=== PATIENT | female | born 2000 | race African-American/Black ===

== ENCOUNTER 2022-08-06 00:31 | Emergency (ER) | payer MEDICAID, OTHER ==
[2022-08-06 01:43] VITALS: BP 141/93
[2022-08-06] MEDS ORDERED: MUPI22OI2 TP (01:44)
[2022-08-06] MEDS ORDERED: CEPH500T PO (01:44)
--- NOTE | 2022-08-06 01:44 | ED Integumentary General ---
General Chief Complaint: Breast Complaints Stated Complaint: SORE ON LEFT BREAST Nursing Triage Note: PT AMBULATORY INTO ER FROM HOME VIA PRIVATE VEHICLE WITH COMPLAINT OF SORE ON LEFT BREAST. PT STATES THAT ITS BEEN PRESENT X2 DAYS. PATIENT DESCRIBED IT A RAISED KNOT ABOUT SIZE OF A DIME. WILL ALLOW PROVIDER TO DO ASSESSMENT. THIS RN DIDN'T ASSESS. 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: [employer] Physical Exam Vital Signs Vital Signs - First Documented 08/06/22 00:51 Temp 36.6 Pulse 88 Resp 16 B/P (MAP) 147/95 (112) Pulse Ox 98 O2 Delivery Room Air Capillary Refill : Less Than 3 Seconds Progress/Results/Core Measures Results/Orders My Orders Orders - PAWEL DENNISON DO Cephalexin Capsule (Keflex Capsule) (08/06/22 01:45) Vital Signs/I&O 08/06/22 00:51 Temp 36.6 Pulse 88 Resp 16 B/P (MAP) 147/95 (112) Pulse Ox 98 O2 Delivery Room Air Blood Pressure Mean: 112 Departure Impression Primary Impression: Folliculitis Disposition: 01 HOME, SELF-CARE Condition: Stable Departure-Patient Inst. Decision time for Depature: 01:43 Referrals: NO,LOCAL PHYSICIAN (PCP/Family) Primary Care Physician Patient Instructions: Folliculitis Add. Discharge Instructions: MOIST HEAT TO AREA AT 20 MINUTE INTERVALS TYLENOL AND MOTRIN NEEDED FOR PAIN FOLLOW UP WITH OF [facility] IN 3-4 DAYS IF NO BETTER, OR SOONER IF WORSE All discharge instructions reviewed with patient and/or family. Voiced understanding. Scripts Mupirocin (Mupirocin) 2 % Oint...g. 22 GM TP BID, #1 TUBE Prov: PAWEL DENNISON DO 08/06/22 Cephalexin (Cephalexin) 500 Mg Tablet 500 MG PO QID, #20 TAB 0 Refills Prov: PAWEL DENNISON DO 08/06/22 PAWEL DENNISON DO Aug 06, 2022 01:44
[2022-08-06] MEDS ORDERED: CEPHALEXIN 250 MG (KEFLEX) CAP PO ONE (01:45)
== END 2022-08-06 01:48 | disposition home or self-care (01) ==
LOC: ER 00:34
DX: L73.9 Follicular disorder, unspecified (principal)
CPT/HCPCS: 99281

== ENCOUNTER 2022-09-08 13:46 | Emergency (ER) | payer MEDICAID ==
[~2022-09-08] VITALS: Ht 157 cm; Wt 100.0 kg
[~2022-09-08 13:46] MED LIST: CEPH500T PO; MUPI22OI2 TP
[2022-09-08 14:24] VITALS: BP 124/68
[2022-09-09] MEDS ORDERED: IBUP-1773 PO (14:01)
[2022-09-09] MEDS ORDERED: ONDA4TAB11 SL (14:01)
[2022-09-09] MEDS ORDERED: NITR-65 PO (14:01)
== END 2022-09-08 15:32 | disposition left against medical advice (07) ==
LOC: EDUNIT# 13:46 → ER 13:48
DX: R05.9 Cough, unspecified (principal); R09.81 Nasal congestion
CPT/HCPCS: 99285

== ENCOUNTER 2022-09-09 12:12 | Emergency (ER) | payer MEDICAID ==
[~2022-09-09] VITALS: Ht 157.5 cm; Wt 90.7 kg
--- NOTE | 2022-09-09 13:20 | ED General ---
General Chief Complaint: Abdominal/GI Problems Stated Complaint: ABD CRAMPS/BACK PAIN POS 4 WKS PREG Nursing Triage Note: PT AMB TO TRIAGE, STATES "I WENT TO THE HOSPITAL ABOUT A MONTH AGO AND THEY TOLD ME I WAS BUT I DIDN'T BELIEVE THEM BECAUSE I TOOK A PLAN B BUT NOW I GO PEE ALL THE TIME AND MY ABDOMEN HURTS SO MY PARENTS TOLD ME TO COME HERE." PT ALSO C/O NAUSEA, FATIGUE, RAMOS. PT A&OX4. Source of Information: Patient Exam Limitations: No Limitations History of Present Illness Date Seen by Provider: Sep 09, 2022 Time Seen by Provider: 13:15 Initial Comments Patient is a 22-year-old female who presents to the emergency department with several days of intermittent headache as well as nausea without vomiting. Patient states she was seen a month ago at another hospital where she was told she was . Patient states "I do not believe in". She states she took Plan B after a sexual encounter shortly prior to presenting to that hospital. She states she has been having some mild diffuse abdominal cramping intermittently for the last few days as well. Denies any diarrhea or constipation. She has not been taking anything for the symptoms. She is unsure of the exact date of her last menstrual period. Allergies and Home Medications Allergies Coded Allergies: No Known Drug Allergies (Unverified , 08/06/22) Patient Home Medication List Home Medication List Reviewed: Yes Cephalexin (Cephalexin) 500 Mg Tablet, 500 MG PO QID Prescribed by: PAWEL DENNISON on 08/06/22 014 Ibuprofen (Ibuprofen) 600 Mg Tablet, 600 MG PO Q6H PRN for PAIN-MILD Prescribed by: Bhupinder Salgado on 09/09/22 140 Mupirocin (Mupirocin) 2 % Oint...g., 22 GM TP BID Prescribed by: PAWEL DENNISON on 08/06/22 014 Nitrofurantoin Monohyd/M-Cryst (Macrobid 100 mg Capsule) 100 Mg Capsule, 1 TAB PO BID Prescribed by: Bhupinder Salgado on 09/09/221400 Ondansetron (Ondansetron Odt) 4 Mg Tab.rapdis, 4 MG SL Q4H PRN for NAUSEA/VOMITING Prescribed by: Bhupinder Salgado on 09/09/22 140 Review of Systems Review of Systems Constitutional: no symptoms reported EENTM: no symptoms reported Respiratory: no symptoms reported Cardiovascular: no symptoms reported Gastrointestinal: see HPI, abdominal pain, nausea Genitourinary: no symptoms reported Musculoskeletal: no symptoms reported Skin: no symptoms reported Psychiatric/Neurological: No Symptoms Reported Hematologic/Lymphatic: No Symptoms Reported Immunological/Allergic: no symptoms reported Past Lttoqcd-Anmwxk-Kexzqa Hx Patient Social History Tobacco Use?: No Use of E-Cig and/or Vaping dev: No Substance use?: No Alcohol Use?: No Immunizations Up To Date Influenza Vaccine Up-to-Date: Yes; Up-to-Date First/Initial COVID19 Vaccinat: 01/13 Second COVID19 Vaccination Teodoro: 01/13 Third COVID19 Vaccination Date: NONE COVID19 Vaccine Seo Strategist: UNK X2 SHOTS Past Medical History Surgery/Hospitalization HX: ENT SURGERY, T&A, TUBES IN EARS, ASTHMA Surgeries: No Respiratory: Yes Asthma Cardiac: No Neurological: No Last Menstrual Period: Jul 09, 2022 Genitourinary: No Gastrointestinal: No Musculoskeletal: No Endocrine: No HEENT: No Cancer: No Psychosocial: No Integumentary: No Blood Disorders: No Physical Exam Vital Signs Vital Signs - First Documented 09/09/22 12:33 Temp 36.5 Pulse 106 Resp 20 B/P (MAP) 130/100 (110) Pulse Ox 98 O2 Delivery Room Air Capillary Refill : Less Than 3 Seconds Height, Weight, BMI Height: '" Weight: lbs. oz. kg; 36.00 BMI Method: General Appearance: No Apparent Distress, WD/WN HEENT: PERRL/EOMI, TMs Normal, Normal ENT Inspection, Pharynx Normal Neck: Full Range of Motion, Normal Inspection, Non Tender, Supple Respiratory: Chest Non Tender, Lungs Clear, Normal Breath Sounds, No Accessory Muscle Use, No Respiratory Distress Cardiovascular: Regular Rate, Rhythm Gastrointestinal: Non Tender, Soft Neurologic/Psychiatric: Alert, Oriented x3, No Motor/Sensory Deficits, Normal Mood/Affect, head shipper II-XII Norm as Tested Skin: Normal Color, Warm/Dry Progress/Results/Core Measures Suspected Sepsis SIRS Temperature: Pulse: 106 Respiratory Rate: 20 Blood Pressure 130 /100 Mean: 110 Results/Orders Lab Results Laboratory Tests Test 09/09/22 12:55 Range/Units Urine Color YELLOW Urine Clarity CLEAR Urine pH 6.0 5-9 Urine Specific [place] >=1.030 1.016-1.022 Urine Protein NEGATIVE NEGATIVE Urine Glucose (UA) NEGATIVE NEGATIVE Urine Ketones NEGATIVE NEGATIVE Urine Nitrite POSITIVE H NEGATIVE Urine Bilirubin NEGATIVE NEGATIVE Urine Urobilinogen 0.2 < = 1.0 MG/DL Urine Leukocyte Esterase 2+ H NEGATIVE Urine RBC (Auto) NEGATIVE NEGATIVE Urine RBC NONE /HPF Urine WBC 5-10 H /HPF Urine Squamous Epithelial Cells 5-10 /HPF Urine Crystals NONE /LPF Urine Bacteria LARGE H /HPF Urine Casts NONE /LPF Urine Mucus NEGATIVE /LPF Urine Culture Indicated YES My Orders Orders - BHUPINDER SALGADO APRN Ua Culture If Indicated (09/09/22 13:15) Urine Bedside (09/09/22 13:15) Urine Culture (09/09/22 12:55) Vital Signs/I&O 09/09/22 12:33 Temp 36.5 Pulse 106 Resp 20 B/P (MAP) 130/100 (110) Pulse Ox 98 O2 Delivery Room Air Capillary Refill : Less Than 3 Seconds Blood Pressure Mean: 110 Progress Note : Progress Note Patient is nontoxic and well-hydrated on exam. Abdominal exam is reassuring without focal provocation of pain or rigidity/distention. Patient was ambulatory to the room without issue. Vital signs are reassuring without fever. Urine was negative. Urinalysis was nitrite positive and bacteriuria was noted on microscopic. We will treat with a course of Macrobid. Patient will also be given medicine for headache and the nausea. Follow-up with PCP. Return precautions for urgent symptomology discussed. Patient verbalized unders tanding. Departure Impression Primary Impression: UTI (urinary tract infection) Qualified Codes: N30.00 - Acute cystitis without hematuria Additional Impression: Headache Qualified Codes: R51.9 - Headache, unspecified Disposition: HOME, SELF-CARE Condition: Stable Departure-Patient Inst. Referrals: NO,LOCAL PHYSICIAN (PCP/Family) Primary Care Physician Patient Instructions: Headache, Adult ED, Urinary Tract Infection, Adult ED Scripts Ibuprofen (Ibuprofen) 600 Mg Tablet 600 MG PO Q6H PRN for PAIN-MILD for 5 Days, #20 TAB 0 Refills Prov: BHUPINDER SALGADO APRN 09/09/22 Ondansetron (Ondansetron Odt) 4 Mg Tab.rapdis 4 MG SL Q4H PRN for NAUSEA/VOMITING for 5 Days, #25 TAB 0 Refills Prov: BHUPINDER SALGADO APRN 09/09/22 Nitrofurantoin Monohyd/M-Cryst (Macrobid 100 mg Capsule) 100 Mg Capsule 1 TAB PO BID for 5 Days, #10 CAP 0 Refills Prov: BHUPINDER SALGADO APRN 09/09/22 BHUPINDER SALGADO APRN Sep 09, 2022 13:20
[2022-09-09 13:21] LABS: BILIRUBIN,URINE NEGATIVE (NEGATIVE); CLARITY,URINE CLEAR; COLOR,URINE YELLOW; GLUCOSE, URINE (UA) NEGATIVE (NEGATIVE); KETONES,URINE NEGATIVE (NEGATIVE); LEUKOCYTE ESTERASE ,URINE 2+ (NEGATIVE); NITRITE,URINE POSITIVE (NEGATIVE); PROTEIN,URINE NEGATIVE (NEGATIVE)
[2022-09-09 13:28] LABS: BACTERIA,URINE LARGE /HPF
[2022-09-09] MEDS ORDERED: ONDA4TAB11 SL (14:01)
[2022-09-09] MEDS ORDERED: IBUP-1773 PO (14:01)
[2022-09-09] MEDS ORDERED: NITR-65 PO (14:01)
[2022-09-09 14:13] VITALS: BP 147/84
== END 2022-09-09 14:13 | disposition home or self-care (01) ==
LOC: EDUNIT# 12:12 → ER 12:16
DX: N39.0 Urinary tract infection, site not specified (principal); R51.9 Headache, unspecified
CPT/HCPCS: 81000; 84703; 87077; 87088; 87186; 99282

== ENCOUNTER 2022-09-11 00:16 | Emergency (ER) | payer MEDICAID ==
[~2022-09-11] VITALS: Ht 157.5 cm; Wt 90.7 kg
[~2022-09-11 00:16] MED LIST changes: +IBUP-1773 PO; +NITR-65 PO; +ONDA4TAB11 SL
--- NOTE | 2022-09-11 01:18 | ED Cough/URI ---
General Stated Complaint: CONGESTION Source: patient (LIMITED HISTORIAN) History of Present Illness Date Seen by Provider: Sep 11, 2022 Time Seen by Provider: 00:25 Initial Comments PT ARRIVES VIA POV FROM HOME SISTER IS BEING SEEN ALSO TONIGHT PT STATES SHE IS "CONGESTED" NO OTHER COMPLAINTS HAS NOT TAKEN ANYTHING FOR SYMPTOMS SHE STATES SYMPTOMS BEGAN TONIGHT ON REVIEW OF CHART, PT HAS BEEN HERE 4 TIMES, SINCE HER FIRST VISIT HERE 08/06/22 WAS HERE 09/08/22 FOR "CONGESTION" THEN LEFT WITHOUT BEING SEEN FROM THE WAITING ROOM HERE 09/09/22 FOR UTI COMPLAINTS, GIVEN RX FOR MACROBID AND ZOFRAN, AND IBUPROFEN. DENIES ANY MEDICAL PROBLEMS PCP: NONE--RECENTLY MOVED HERE--GIVES CONFLICTING INFORMATION OF WHEN SHE MOVED HERE AND FROM WHERE. Allergies and Home Medications Allergies Coded Allergies: No Known Drug Allergies (Unverified , 08/06/22) Patient Home Medication List Home Medication List Reviewed: Yes Cephalexin (Cephalexin) 500 Mg Tablet, 500 MG PO QID Prescribed by: PAWEL DENNISON on 08/06/22 0144 Ibuprofen (Ibuprofen) 600 Mg Tablet, 600 MG PO Q6H PRN for PAIN-MILD Prescribed by: Lavelle Salgado on 09/09/22 1401 Mupirocin (Mupirocin) 2 % Oint...g., 22 GM TP BID Prescribed by: PAWEL DENNISON on 08/06/22 0144 Nitrofurantoin Monohyd/M-Cryst (Macrobid 100 mg Capsule) 100 Mg Capsule, 1 TAB PO BID Prescribed by: Lavelle Salgado on 09/09/22 1401 Ondansetron (Ondansetron Odt) 4 Mg Tab.rapdis, 4 MG SL Q4H PRN for NAUSEA/VOMITING Prescribed by: Lavelle Salgado on 09/09/22 1401 Review of Systems Review of Systems Constitutional: no symptoms reported EENTM: nose congestion Respiratory: no symptoms reported Cardiovascular: no symptoms reported Gastrointestinal: no symptoms reported Genitourinary: no symptoms reported Musculoskeletal: no symptoms reported Skin: no symptoms reported Psychiatric/Neurological: No Symptoms Reported Hematologic/Lymphatic: No Symptoms Reported Immunological/Allergic: no symptoms reported Past Rndudyd-Rockkj-Flygwc Hx Patient Social History Tobacco Use?: No Substance use?: No Alcohol Use?: No Immunizations Up To Date First/Initial COVID19 Vaccinat: 01/13 Second COVID19 Vaccination Teodoro: 01/13 Third COVID19 Vaccination Date: NONE Past Medical History Surgery/Hospitalization HX: ENT SURGERY, T&A, TUBES IN EARS, ASTHMA Surgeries: Yes Adenoidectomy, Ear Surgery, Tonsillectomy Respiratory: Yes Asthma Cardiac: No Neurological: No Genitourinary: No Gastrointestinal: No Musculoskeletal: No Endocrine: No HEENT: No Cancer: No Psychosocial: No Integumentary: No Blood Disorders: No Physical Exam Vital Signs - First Documented 09/11/22 00:30 Temp 37.2 Pulse 76 Resp 16 B/P (MAP) 146/68 (94) Pulse Ox 99 O2 Delivery Room Air Capillary Refill : Height: '" Weight: lbs. oz. kg; 36.00 BMI Method: General Appearance: WD/WN, no apparent distress, obese, other (GIGGLING. DOES NOT APPEAR TO BE IN ANY DISCOMFORT OR DISTREESS) HEENT: PERRL/EOMI, TMs normal, pharynx normal, other (VERY MILD NASAL CONGESTION. NO SINUS TENDERNESS. NO SIGNIFICANT DRAINAGE. ) Neck: non-tender, full range of motion, supple, normal inspection Respiratory: normal breath sounds, no respiratory distress, no accessory muscle use Cardiovascular: regular rate, rhythm, no murmur Gastrointestinal: soft Extremities: normal inspection, normal capillary refill Neurologic/Psychiatric: no motor/sensory deficits, alert, normal mood/affect, oriented x 3 Skin: normal color (PT IS BLACK), warm/dry Progress/Results/Core Measures Suspected Sepsis SIRS Temperature: Pulse: Respiratory Rate: Blood Pressure / Mean: Results/Orders Lab Results Laboratory Tests Test 09/11/22 00:37 Range/Units Influenza Type A (RT-PCR) Not Detected Not Detecte Influenza Type B (RT-PCR) Not Detected Not Detecte SARS-CoV-2 RNA (RT-PCR) Not Detected Not Detecte My Orders Orders - PAWEL DENNISON DO Covid 19 Inhouse Test (09/11/22 00:25) Influenza A And B By Pcr (09/11/22 00:25) Isolation Central Supply Req (09/11/22 00:25) Vital Signs/I&O 09/11/22 09/11/22 00:30 01:30 Temp 37.2 37.0 Pulse 76 74 Resp 16 14 B/P (MAP) 146/68 (94) 145/73 Pulse Ox 99 98 O2 Delivery Room Air Room Air Capillary Refill : Progress Note : Progress Note PPE WORN COVID AND FLU TESTING DONE REVIEWED TEST RESULTS, ANTICIPATED COURSE, SYMPTOMATIC TREATMENT, NEED FOR FOLL OW UP AND NEED TO ESTABLISH CARE WITH LOCAL DR--LIST PROVIDED, AND RETURN PRECAUTIONS. Departure Impression Primary Impression: Upper respiratory infection Disposition: HOME, SELF-CARE Condition: Stable Departure-Patient Inst. Decision time for Depature: 01:17 Referrals: NO,LOCAL PHYSICIAN (PCP/Family) Primary Care Physician Patient Instructions: Cough, Runny Nose, and the Common Cold Add. Discharge Instructions: TYLENOL AND MOTRIN NEEDED FOR PAIN OR FEVER OVER THE COUNTER MEDICATIONS FOR NASAL CONGESTION SUCH FLONASE NASAL SPRAY, CLARITIN, MUCINEX FOLLOW UP WITH DR. OF CHOICE IN 5-7 DAYS IF NO BETTER Work/School Note: Local Medical Staff Listing PAWEL DENNISON DO Sep 11, 2022 01:18
[2022-09-11 01:30] VITALS: BP 145/73
== END 2022-09-11 01:30 | disposition home or self-care (01) ==
LOC: EDUNIT# 00:16 → ER 00:20
DX: J06.9 Acute upper respiratory infection, unspecified (principal); Z20.822 Contact with and (suspected) exposure to COVID-19
CPT/HCPCS: 87636; 99283

== ENCOUNTER 2023-04-05 00:18 | Emergency (ER) | payer MEDICAID ==
[2023-04-05 01:41] LABS: BILIRUBIN,URINE NEGATIVE (NEGATIVE); CLARITY,URINE CLEAR; COLOR,URINE YELLOW; GLUCOSE, URINE (UA) NEGATIVE (NEGATIVE); KETONES,URINE NEGATIVE (NEGATIVE); LEUKOCYTE ESTERASE ,URINE 1+ (NEGATIVE); NITRITE,URINE NEGATIVE (NEGATIVE); PROTEIN,URINE NEGATIVE (NEGATIVE)
[2023-04-05 02:00] LABS: BACTERIA,URINE MODERATE /HPF; RBC,URINE 0-2 /HPF
[2023-04-05] MEDS ORDERED: AZITHROMYCIN 250 MG TAB (ZITHROMAX) PO STA (02:47)
[2023-04-05] MEDS ORDERED: cefTRIAXone IV/IM 1,000 MG in NS (IVPB) 50 ML IV STA (02:47)
--- NOTE | 2023-04-05 02:58 | ED GU-Female ---
General Chief Complaint: Abdominal/GI Problems Stated Complaint: ABD PAIN/VAG DISCHARGE/URINE SMELLS Nursing Triage Note: PT AMB TO RM 7 WITH CC OF LOWER ABD PAIN, ODOROUS URINE ABD SKIPPED PERIOD SINCE 04/02. PT DENIES N/V/D Source: patient Exam Limitations: no limitations History of Present Illness Date Seen by Provider: Apr 05, 2023 Time Seen by Provider: 00:30 Initial Comments This 22-year-old young lady presents to the emergency room with complaint of about 3 days of vaginal and urinary discharge with odor. She has pelvic pain with urination. She is sexually active but is not having pain with intercourse. She has had no fever. Allergies and Home Medications Allergies Coded Allergies: No Known Drug Allergies (Unverified , 08/06/22) Patient Home Medication List Home Medication List Reviewed: Yes Cephalexin (Cephalexin) 500 Mg Tablet, 500 MG PO QID Prescribed by: PAWEL DENNISON on 08/06/22 0144 Ibuprofen (Ibuprofen) 600 Mg Tablet, 600 MG PO Q6H PRN for PAIN-MILD Prescribed by: Lavelle Salgado on 09/09/22 140 Metronidazole (Metronidazole) 500 Mg Tablet, 500 MG PO BID PRN Prescribed by: RODRÍGUEZ RUSSELL on 04/05/23 0303 Mupirocin (Mupirocin) 2 % Oint...g., 22 GM TP BID Prescribed by: PAWEL DENNISON on 08/06/22 0144 Nitrofurantoin Monohyd/M-Cryst (Macrobid 100 mg Capsule) 100 Mg Capsule, 1 TAB PO BID Prescribed by: Lavelle Salgado on 09/09/22 140 Ondansetron (Ondansetron Odt) 4 Mg Tab.rapdis, 4 MG SL Q4H PRN for NAUSEA/V OMITING Prescribed by: Lavelle Salgado on 09/09/22 1401 Review of Systems Review of Systems Constitutional: no symptoms reported EENTM: no symptoms reported Respiratory: no symptoms reported Cardiovascular: no symptoms reported Gastrointestinal: no symptoms reported Genitourinary: see HPI : No LMP: Feb 28, 2023 Musculoskeletal: no symptoms reported Skin: no symptoms reported Psychiatric/Neurological: No Symptoms Reported Endocrine: No Symptoms Reported Past Oxgakkm-Tcfbny-Dfdxog Hx Patient Social History Tobacco Use?: No Substance use?: No Alcohol Use?: No Pt feels they are or have been: No Immunizations Up To Date First/Initial COVID19 Vaccinat: 2020 Second COVID19 Vaccination Teodoro: 2020 Third COVID19 Vaccination Date: 2020 Past Medical History Surgery/Hospitalization HX: ENT SURGERY, T&A, TUBES IN EARS, ASTHMA Surgeries: Yes Adenoidectomy, Ear Surgery (BMT), Tonsillectomy Respiratory: Yes Asthma Cardiac: No Neurological: No : No Last Menstrual Period: Feb 28, 2023 Genitourinary: No Gastrointestinal: No Musculoskeletal: No Endocrine: No HEENT: No Cancer: No Psychosocial: No Integumentary: No Blood Disorders: No Physical Exam Vital Signs Vital Signs - First Documented 04/05/23 00:25 Pulse 105 Resp 18 B/P (MAP) 140/84 (102) Pulse Ox 98 O2 Delivery Room Air Capillary Refill : Less Than 3 Seconds Height, Weight, BMI Height: '" Weight: lbs. oz. kg; 36.00 BMI Method: General Appearance: WD/WN, no apparent distress HEENT: normal ENT inspection Neck: normal inspection Cardiovascular: regular rate, rhythm, no edema, no murmur Respiratory: lungs clear, normal breath sounds, no respiratory distress Gastrointestinal: normal bowel sounds, non tender, soft; No distended Genital/Rectal: normal genital exam, other (External exam was normal. There was scant mucousy or purulent discharge near the cervix. There were no significant inflammatory changes. There was minimal cervical motion tenderness. No bleeding within the vaginal canal. Cervix appeared otherwise normal.) Extremities: normal inspection Neurologic/Psychiatric: no motor/sensory deficits, alert, normal mood/affect, oriented x 3 Skin: normal color, warm/dry Progress/Results/Core Measures Suspected Sepsis SIRS Temperature: Pulse: 105 Respiratory Rate: 18 Blood Pressure 140 /84 Mean: 102 Results/Orders Lab Results Laboratory Tests Test 04/05/23 01:25 04/05/23 02:19 Range/Units Urine Color YELLOW Urine Clarity CLEAR Urine pH 6.0 5-9 Urine Specific [place] >=1.030 1.016-1.022 Urine Protein NEGATIVE NEGATIVE Urine Glucose (UA) NEGATIVE NEGATIVE Urine Ketones NEGATIVE NEGATIVE Urine Nitrite NEGATIVE NEGATIVE Urine Bilirubin NEGATIVE NEGATIVE Urine Urobilinogen 0.2 < = 1.0 MG/DL Urine Leukocyte Esterase 1+ H NEGATIVE Urine RBC (Auto) NEGATIVE NEGATIVE Urine RBC 0-2 /HPF Urine WBC 2-5 /HPF Urine Squamous Epithelial Cells 5-10 /HPF Urine Crystals NONE /LPF Urine Bacteria MODERATE H /HPF Urine Casts NONE /LPF Urine Mucus SMALL H /LPF Urine Culture Indicated YES Urine Test NEGATIVE NEGATIVE My Orders Orders - RODRÍGUEZ MOYA MD Ua Culture If Indicated (04/05/23 00:30) Wet Prep (04/05/23 00:47) Neisseria Gonorrhea Swab (04/05/23 00:47) Genital Culture (04/05/23 00:47) Chlamydia Trachomatis Swab (04/05/23 00:47) Urine Culture (04/05/23 01:25) Ceftriaxone Iv/Im (Rocephin Iv/Im) (04/05/23 02:47) Azithromycin Tablet (Zithromax Tablet) (04/05/23 02:47) Hcg,Qualitative Urine (04/05/23 03:04) Vital Signs/I&O 04/05/23 04/05/23 00:25 03:14 Pulse 105 89 Resp 18 16 B/P (MAP) 140/84 (102) 123/73 Pulse Ox 98 100 O2 Delivery Room Air Room Air Capillary Refill : Less Than 3 Seconds Blood Pressure Mean: 102 Progress Note : Progress Note Urinalysis was reviewed. By my interpretation there was subtle suggestion of UTI. There was moderate bacteria but no significant WBC count. Due to patient's symptoms of odorous vaginal discharge with some cervical motion tenderness, patient was treated with Rocephin and azithromycin. Clue cells were reported on the microscopic exam. Flagyl was therefore prescribed. Pelvic exam was performed with consent and with female suzan Nunez as a counter tender. Departure Impression Primary Impression: Bacterial vaginosis Additional Impression: Pelvic pain Disposition: HOME, SELF-CARE Condition: Stable Departure-Patient Inst. Decision time for Depature: 02:54 Referrals: NO,LOCAL PHYSICIAN (PCP/Family) Primary Care Physician Patient Instructions: Bacterial Vaginosis ED Add. Discharge Instructions: Complete your antibiotics as prescribed. Abstain from sexual intercourse or anything vaginally until the results of your cultures are known. Culture results should be available in 3 or 4 days. Please follow-up with a primary care provider to discuss results. If you are unable to establish with a primary care clinic, you may contact the ER after 3 or 4 days to inquire about results. Return to care if you have worsening symptoms despite following these instructions. All discharge instructions reviewed with patient and/or family. Voiced understanding. Scripts Metronidazole (Metronidazole) 500 Mg Tablet 500 MG PO BID PRN, #14 TAB Prov: RODRÍGUEZ MOYA MD 04/05/23 RODRÍGUEZ MOYA MD Apr 05, 2023 02:58
[2023-04-05] MEDS ORDERED: METR-145 PO (03:03)
[2023-04-05 03:14] VITALS: BP 123/73
== END 2023-04-05 03:22 | disposition home or self-care (01) ==
LOC: EDUNIT# 00:18 → ER 00:21
DX: N76.0 Acute vaginitis (principal); B96.89 Other specified bacterial agents as the cause of diseases classified elsewhere; R10.2 Pelvic and perineal pain
CPT/HCPCS: 36415; 81000; 84703; 87070; 87077; 87088; 87186; 87205; 87210; 87491; 87591

== ENCOUNTER 2023-06-04 00:50 | Emergency (ER) | payer MEDICAID ==
[~2023-06-04] VITALS: Ht 158 cm; Wt 95.0 kg
[~2023-06-04 00:50] MED LIST changes: +METR-145 PO
[2023-06-04 01:15] VITALS: BP 139/86
[2023-06-04 02:06] LABS: CLARITY,URINE CLOUDY; COLOR,URINE YELLOW
[2023-06-04 02:07] LABS: BACTERIA,URINE MODERATE /HPF; BILIRUBIN,URINE NEGATIVE (NEGATIVE); GLUCOSE, URINE (UA) NEGATIVE (NEGATIVE); KETONES,URINE TRACE (NEGATIVE); LEUKOCYTE ESTERASE ,URINE 1+ (NEGATIVE); NITRITE,URINE POSITIVE (NEGATIVE); PROTEIN,URINE NEGATIVE (NEGATIVE)
[2023-06-04 02:23] LABS: AMPHETAMINE SCREEN, URINE NEGATIVE (NEGATIVE); BARBITURATE SCREEN URINE NEGATIVE (NEGATIVE); BENZODIAZEPINES SCREEN URINE NEGATIVE (NEGATIVE); CANNABINOID SCREEN, URINE NEGATIVE (NEGATIVE); COCAINE SCREEN URINE NEGATIVE (NEGATIVE); METHADONE STAT NEGATIVE (NEGATIVE); OPIATE SCREEN URINE NEGATIVE (NEGATIVE); OXYCODONE STAT NEGATIVE (NEGATIVE); PROPOXYPHENE STAT NEGATIVE (NEGATIVE); TRICYCLIC ANTIDEPRESSANTS SCRE NEGATIVE (NEGATIVE)
[2023-06-04] MEDS ORDERED: VALA10004 PO (02:56)
[2023-06-04] MEDS ORDERED: METR-145 PO (02:56)
[2023-06-04] MEDS ORDERED: DOXY100T2 PO (02:56)
[2023-06-04] MEDS ORDERED: ACYC30OI TP (02:56)
--- NOTE | 2023-06-04 02:56 | ED GU-Female ---
General Chief Complaint: - Reproductive Stated Complaint: VAGINA TENDER,ABD PX,RAMOS,VOMITING X 3WKS Nursing Triage Note: pt states she has had vaginal burning, discomfort and discharge for 3 weeks. has not had a period in almost 2 months, does not remember when her last period was Allergies and Home Medications Allergies Coded Allergies: No Known Drug Allergies (Unverified , 08/06/22) Patient Home Medication List Cephalexin (Cephalexin) 500 Mg Tablet, 500 MG PO QID Prescribed by: PAWEL DENNISON on 08/06/22 0144 Ibuprofen (Ibuprofen) 600 Mg Tablet, 600 MG PO Q6H PRN for PAIN-MILD Prescribed by: Lavelle Salgado on 09/09/22 1401 Metronidazole (Metronidazole) 500 Mg Tablet, 500 MG PO BID PRN Prescribed by: RODRÍGUEZ RUSSELL on 04/05/23 0303 Mupirocin (Mupirocin) 2 % Oint...g., 22 GM TP BID Prescribed by: PAWEL DENNISON on 08/06/22 0144 Nitrofurantoin Monohyd/M-Cryst (Macrobid 100 mg Capsule) 100 Mg Capsule, 1 TAB PO BID Prescribed by: Lavelle Salgado on 09/09/22 1401 Ondansetron (Ondansetron Odt) 4 Mg Tab.rapdis, 4 MG SL Q4H PRN for NAUSEA/VOMITING Prescribed by: Lavelle Salgado on 09/09/22 1401 Past Xdcpvef-Wxtwcm-Qvyxpt Hx Patient Social History Tobacco Use?: No Substance use?: No Alcohol Use?: No Immunizations Up To Date First/Initial COVID19 Vaccinat: 2020 Second COVID19 Vaccination Teodoro: 2020 Third COVID19 Vaccination Date: 2020 Past Medical History Surgery/Hospitalization HX: ENT SURGERY, T&A, TUBES IN EARS, ASTHMA Surgeries: Yes Adenoidectomy, Ear Surgery, Tonsillectomy Respiratory: Yes Asthma Cardiac: No Neurological: No Genitourinary: No Gastrointestinal: No Musculoskeletal: No Endocrine: No HEENT: No Cancer: No Psychosocial: No Integumentary: No Blood Disorders: No Physical Exam Vital Signs Vital Signs - First Documented 06/04/23 01:15 Temp 36.4 Pulse 92 Resp 18 B/P (MAP) 139/86 (103) Pulse Ox 98 Capillary Refill : Height, Weight, BMI Height: '" Weight: lbs. oz. kg; 38.00 BMI Method: Progress/Results/Core Measures Suspected Sepsis SIRS Temperature: Pulse: 92 Respiratory Rate: 18 Blood Pressure 139 /86 Mean: 103 Results/Orders Lab Results Laboratory Tests Test 06/04/23 01:21 06/04/23 01:24 06/04/23 01:35 Range/Units Urine Opiates Screen NEGATIVE NEGATIVE Urine Oxycodone Screen NEGATIVE NEGATIVE Urine Methadone Screen NEGATIVE NEGATIVE Urine Propoxyphene Screen NEGATIVE NEGATIVE Urine Barbiturates Screen NEGATIVE NEGATIVE Ur Tricyclic Antidepressants Screen NEGATIVE NEGATIVE Urine Phencyclidine Screen NEGATIVE NEGATIVE Urine Amphetamines Screen NEGATIVE NEGATIVE Urine Methamphetamines Screen NEGATIVE NEGATIVE Urine Benzodiazepines Screen NEGATIVE NEGATIVE Urine Cocaine Screen NEGATIVE NEGATIVE Urine Cannabinoids Screen NEGATIVE NEGATIVE Urine Color YELLOW Urine Clarity CLOUDY Urine pH 5.0 5-9 Urine Specific [place] >=1.030 1.016-1.022 Urine Protein NEGATIVE NEGATIVE Urine Glucose (UA) NEGATIVE NEGATIVE Urine Ketones TRACE H NEGATIVE Urine Nitrite POSITIVE H NEGATIVE Urine Bilirubin NEGATIVE NEGATIVE Urine Urobilinogen 0.2 < = 1.0 MG/DL Urine Leukocyte Esterase 1+ H NEGATIVE Urine RBC (Auto) 1+ H NEGATIVE Urine RBC 2-5 H /HPF Urine WBC 10-25 H /HPF Urine Squamous Epithelial Cells 10-25 H /HPF Urine Crystals NONE /LPF Urine Bacteria MODERATE H /HPF Urine Casts NONE /LPF Urine Mucus MODERATE H /LPF Urine Culture Indicated YES Influenza Type A (RT-PCR) Not Detected Not Detecte Influenza Type B (RT-PCR) Not Detected Not Detecte SARS-CoV-2 RNA (RT-PCR) Not Detected Not Detecte My Orders Orders - PAWEL DENNISON DO Ua Culture If Indicated (06/04/23 01:29) Urine Bedside (06/04/23 01:29) Covid 19 Inhouse Test (06/04/23 01:29) Influenza A And B By Pcr (06/04/23 01:29) Drug Screen Stat (Urine) (06/04/23 01:36) Urine Culture (06/04/23 01:24) Neisseria Gonorrhea Swab (06/04/23 02:37) Chlam Dna Probe (06/04/23 02:37) Genital Culture (06/04/23 02:37) Wet Prep (06/04/23 02:37) Sajan Prep (06/04/23 02:37) Herpes Simplex Culture (06/04/23 02:51) Herpes Simplex Virus 1&2 G&M (06/04/23 02:51) Syphilis Antibody Screen (06/04/23 02:51) Syphilis Health Check W/Reflex (06/04/23 02:51) Hepatitis Panel Acute (06/04/23 02:51) Hiv 1&2 Antibody (06/04/23 02:51) Rocephin 1000mg Im (06/04/23 03:00) Lidocaine 1% Inj 20 Ml (Xylocaine 1% Inj (06/04/23 03:00) Azithromycin Tablet (Azithromycin Tabl (06/04/23 03:00) Valacyclovir Tablet (Valacyclovir Tablet (06/04/23 03:00) Vital Signs/I&O 06/04/23 01:15 Temp 36.4 Pulse 92 Resp 18 B/P (MAP) 139/86 (103) Pulse Ox 98 Capillary Refill : Blood Pressure Mean: 103 Departure Impression Primary Impression: UTI (urinary tract infection) Additional Impressions: Genital ulcer, female Vaginitis Disposition: HOME, SELF-CARE Condition: Stable Departure-Patient Inst. Decision time for Depature: 02:54 Referrals: ZOIE HERNÁNDEZ,LOCAL PHYSICIAN (PCP) Primary Care Physician [facility] Patient Instructions: Genital herpes, STD Prevention, Urinary Tract Infection, Adult (DC), Vaginitis Add. Discharge Instructions: NO INTERCOURSE OF ANY KIND UNTIL YOU ARE RECHECKED AND CLEARED BY TYLGABRIEL AND MOTRIN NEEDED FOR PAIN FOLLOW UP WITH YOUR DR NEXT WEEK FOR FURTHER CARE-CALL ON MONDAY TO MAKE AN APPOINTMENT All discharge instructions reviewed with patient and/or family. Voiced understanding. Scripts Acyclovir (Zovirax) 5 % Oint 30 GM TP Q3-4 HOURS, #1 TUBE Prov: PAWEL DENNISON DO 06/04/23 Valacyclovir HCl (Valtrex) 1,000 Mg Tablet 1000 MG PO TIDAC, #30 TAB Prov: PAWEL DENNISON DO 06/04/23 Metronidazole (Metronidazole) 500 Mg Tablet 500 MG PO QID, #40 TAB Prov: PAWEL DENNISON DO 06/04/23 Doxycycline Hyclate (Doxycycline Hyclate) 100 Mg Tablet 100 MG PO BID, #20 TAB 0 Refills Prov: PAWEL DENNISON DO 06/04/23 PAWEL DENNISON DO Jun 04, 2023 02:56
[2023-06-04] MEDS ORDERED: cefTRIAXone 1,000 MG VIAL IV/IM IM ONE (03:00)
[2023-06-04] MEDS ORDERED: LIDOCAINE 1% INJ 20 ML VIAL INJ ONE (03:00)
[2023-06-04] MEDS ORDERED: AZITHROMYCIN 250 MG TABLET PO ONE (03:00)
[2023-06-04] MEDS ORDERED: VALACYCLOVIR 500 MG TABLET PO SCH (03:00)
[2023-06-04] MEDS ORDERED: LIDOCAINE 1% INJ 10 ML VIAL ONE (03:06)
[2023-06-05 14:13] LABS: HEPATITIS C ANTIBODY C Non-Reactive (Non-Reactive)
== END 2023-06-04 03:21 | disposition home or self-care (01) ==
LOC: EDUNIT# 00:50 → ER 00:53
DX: N76.0 Acute vaginitis (principal); N76.5 Ulceration of vagina; N94.810 Vulvar vestibulitis; N39.0 Urinary tract infection, site not specified; Z20.822 Contact with and (suspected) exposure to COVID-19
CPT/HCPCS: 36415; 80074; 80306; 81000; 84703; 86592; 86695; 86696; 86780; 87070; 87077; 87088; 87186; 87205; 87210; 87254; 87389; 87491; 87591; 87636

== ENCOUNTER 2023-07-08 21:24 | Emergency (ER) | payer MEDICAID ==
[~2023-07-08] VITALS: Ht 157.5 cm; Wt 90.7 kg
[~2023-07-08 21:24] MED LIST changes: +ACYC30OI TP; +DOXY100T2 PO; +VALA10004 PO
[2023-07-08] MEDS ORDERED: ONDANSETRON 4 MG ORAL DISSOLVE TABLET PO STA (22:02)
[2023-07-08] MEDS ORDERED: POLYMYXIN B OT STA (22:02)
[2023-07-08] MEDS ORDERED: NEOMYCIN OT STA (22:02)
[2023-07-08] MEDS ORDERED: HYDROCORTISONE OT STA (22:02)
[2023-07-08] MEDS ORDERED: KETOROLAC INJ 30 MG/ML VIAL IM ONE (22:15)
--- NOTE | 2023-07-08 22:15 | ED General ---
General Chief Complaint: Head/Cervical Problems Stated Complaint: HEADACHE/DIZZY Nursing Triage Note: PT A&OX3; PT BROUGHT TO ROOM VIA EMS STRETCHER; PT ADVISES THAT SHE RECENTLY MOVED HERE AND HAS NOT BEEN ABLE TO ESTABLISH WITH A PCP IN THAT TIME; PT ADVISES THAT THIS MORNING WHEN SHE WOKE UP SHE HAD A SEVERE HEADACHE WITH ASSOCIATED NAUSEA; PT REPORTS THAT HEADACHE HAS PERSISTED AND WORSENED THROUGHOUT THE DAY Source of Information: Patient (TYLOR AGUILAR) History of Present Illness Date Seen by Provider: Jul 08, 2023 Time Seen by Provider: 21:40 Initial Comments This is a 23 yo female that presents with x1 day of headache. Pt states that she had a headache all day that she tried tylenol 2 tablets that did not help. Pt states that around 5pm today, she laid down to rest, woke up, and was "really dizzy" and felt like her vision was blurry. Then, patient says she developed heat flashes and she vomited. Headache worsened. The headache is located across the front of the forehead without radiation. RAMOS was throbbing, constant, and rated as 8/10. Pt has history of asthma, ENT surgeries (multiple sets of tubes, tonsillectomy, adnoidectomy). Negative for diarrhea, constipation, abdominal pain, chest pain, palpitations, fever, dysuria, hearing/vision loss. (TYLOR AGUILAR) Allergies and Home Medications Allergies Coded Allergies: No Known Drug Allergies (Unverified , 08/06/22) Patient Home Medication List Home Medication List Reviewed: Yes (DHRUV VELASQUEZ MD) Acyclovir (Zovirax) 5 % Oint, 30 GM TP Q3-4 HOURS Prescribed by: PAWEL DENNISON on 06/04/23 0256 Cephalexin (Cephalexin) 500 Mg Tablet, 500 MG PO QID Prescribed by: PAWEL DENNISON on 08/06/22 0144 Doxycycline Hyclate (Doxycycline Hyclate) 100 Mg Tablet, 100 MG PO BID Prescribed by: PWAEL DENNISON on 06/04/23 0256 Ibuprofen (Ibuprofen) 600 Mg Tablet, 600 MG PO Q6H PRN for PAIN-MILD Prescribed by: Lavelle Salgado on 09/09/22 1401 Metronidazole (Metronidazole) 500 Mg Tablet, 500 MG PO BID PRN Prescribed by: RODRÍGUEZ RUSSELL on 04/05/23 0303 Metronidazole (Metronidazole) 500 Mg Tablet, 500 MG PO QID Prescribed by: PAWEL DENNISON on 06/04/23 0256 Mupirocin (Mupirocin) 2 % Oint...g., 22 GM TP BID Prescribed by: PAWEL DENNISON on 08/06/22 0144 Neomycin/Polymyxin B Sulf/Hc (Cpwgtoiw-Kbpwrqnyz-Wz Ear Susp) 3.5 Mg/Ml-10,000 Unit/Ml-1 % Drops.susp, 3 DROPS OT QID Prescribed by: DHRUV VELASQUEZ on 07/08/23 2240 Nitrofurantoin Monohyd/M-Cryst (Macrobid 100 mg Capsule) 100 Mg Capsule, 1 TAB PO BID Prescribed by: Lavelle Salgado on 09/09/22 140 Ondansetron (Ondansetron Odt) 4 Mg Tab.rapdis, 4 MG SL Q4H PRN for NAUSEA/VOMITING Prescribed by: Lavelle Salgado on 09/09/22 140 Valacyclovir HCl (Valtrex) 1,000 Mg Tablet, 1,000 MG PO TIDAC Prescribed by: PAWEL DENNISON on 06/04/23 025 Review of Systems Review of Systems Constitutional: see HPI EENTM: see HPI Respiratory: No cough, No orthopnea, No phlegm; short of breath Cardiovascular: see HPI Gastrointestinal: see HPI Genitourinary: see HPI Skin: no symptoms reported Psychiatric/Neurological: See HPI (TYLOR AGUILAR) Past Qewkpkv-Gprzwz-Rzuohr Hx Patient Social History Tobacco Use?: No Substance use?: No Alcohol Use?: No Pt feels they are or have been: No (TYLOR AGUILAR) Immunizations Up To Date Influenza Vaccine Up-to-Date: Yes; Up-to-Date First/Initial COVID19 Vaccinat: N/A Second COVID19 Vaccination Teodoro: 2020 Third COVID19 Vaccination Date: 2020 (TYLOR AGUILAR) Past Medical History Surgery/Hospitalization HX: HTN/G1:P1 Surgeries: Yes Adenoidectomy, Ear Surgery, Tonsillectomy Respiratory: Yes Asthma Cardiac: No Neurological: No Last Menstrual Period: Jun 10, 2023 Genitourinary: No Gastrointestinal: No Musculoskeletal: No Endocrine: No HEENT: No Cancer: No Psychosocial: No Integumentary: No Blood Disorders: No (TYLOR AGUILAR) Physical Exam Vital Signs Vital Signs - First Documented 07/08/23 21:28 Temp 37.0 Pulse 104 Resp 16 B/P (MAP) 123/78 (93) Pulse Ox 99 O2 Delivery Room Air (DHRUV VELASQUEZ MD) Vital Signs Capillary Refill : Less Than 3 Seconds (TYLOR AGUILAR) Height, Weight, BMI Height: '" Weight: lbs. oz. kg; 36.00 BMI Method: General Appearance: No Apparent Distress, WD/WN HEENT: PERRL/EOMI, Other (green discharge in both ears. Tube seen in right ear. Green nasal discharge.) Neck: Full Range of Motion, Non Tender, Supple Respiratory: Chest Non Tender, Lungs Clear, Normal Breath Sounds, No Accessory Muscle Use, No Respiratory Distress Cardiovascular: Regular Rate, Rhythm, No Edema, No Murmur Gastrointestinal: Normal Bowel Sounds, No Organomegaly, Non Tender, Soft Neurologic/Psychiatric: Alert, Oriented x3, No Motor/Sensory Deficits, learning and development coordinator II- XII Norm as Tested Skin: Normal Color, Warm/Dry (TYLOR AGUILAR) Progress/Results/Core Measures Suspected Sepsis SIRS Temperature: Pulse: 104 Respiratory Rate: 16 Blood Pressure 123 /78 Mean: 93 (TYLOR AGUILAR) Results/Orders My Orders Orders - DHRUV VELASQUEZ MD Ketorolac Injection (Ketorolac Injection (07/08/23 22:15) Ondansetron Oral Dissolve Tab (Ondanset (07/08/23 22:02) Neomy/Poly/Hc Otic Suspension (Neomycin/ (07/08/23 22:02) Rx-Anthony/Poly/Hc Otic Susp (Rx-Cortisporin (07/08/23 22:20) (DHRUV VELASQUEZ MD) Medications Given in ED Current Medications Medications Dose Ordered Sig/Hubert Route Start Time Stop Time Status Last Admin Dose Admin Ketorolac Tromethamine 30 mg ONCE ONCE IM 07/08/23 22:15 07/08/23 22:16 DC 07/08/23 22:23 30 MG (DHRUV VELASQUEZ MD) Vital Signs/I&O 07/08/23 07/08/23 07/08/23 21:28 22:23 22:46 Temp 37.0 37.0 37.0 Pulse 104 81 Resp 16 16 B/P (MAP) 123/78 (93) 129/83 Pulse Ox 99 99 O2 Delivery Room Air Room Air (DHRUV VELASQUEZ MD) Vital Signs/I&O Capillary Refill : Less Than 3 Seconds (TYLOR AGUILAR) Blood Pressure Mean: 93 Progress Note : Time: 22:33 Progress Note Patient seen and evaluated by me. I agree with the medical student's documentation, my findings are as follows evaluation today includes physical exam. Pertinent physical exam findings include WDWN obese female in NAD. HEENT exam pertinent for bilateral purulen discharge from both TMs. Her right PET is visualized. I cannot see the actual tm. Nasal mucosal congestion. OP clear/well hydrated. Neuro is non focal - no atiaxia. no romberg. Normal strength and sensation throughout. Differential diagnosis includes tension headache, sinus headache Patient exam is nonfocal. She does have bilateral purulence at the TMs. Suspect her headache is tension and sinus combined. She is treated in the emergency department with 30 mg of IM Toradol. She is given Cortisporin otic suspension drops for both the ears. We will have her placed 2 drops 4 times a day in each ear. Also recommended ihix-uog-vsqudrw Zyrtec for decongestion. Ibuprofen for her headache. She was given Zofran for nausea. Patient achieved significant relief with the Toradol. She is strongly encouraged to follow-up with [facility] for further evaluation and management of her ear pathol ogy. All questions were sought and answered. Patient is improved at discharge (DHRUV VELASQUEZ MD) Departure Impression Primary Impression: Otitis media Qualified Codes: H66.43 - Suppurative otitis media, unspecified, bilateral Additional Impression: Headache above the eye region Disposition: 01 HOME, SELF-CARE Condition: Improved Departure-Patient Inst. Decision time for Depature: 22:36 (DHRUV VELASQUEZ MD) Referrals: [facility] ELLEN,LOCAL PHYSICIAN (PCP) Primary Care Physician Patient Instructions: Headache, Adult (DC) Add. Discharge Instructions: Please use the antibiotic eardrops in both the ears. Use 3 drops in each ear 4 times daily. You should start taking fdux-jet-algbxuj generic Zyrtec or Lyla. Please follow packaging instructions. This will help with the congestion in your sinuses and help your ears to drain. Wses-dcj-sarmqga ibuprofen 3 tablets which is 600 mg every 6-8 hours with food as needed for headache, pain. You need to call [facility] on Monday to establish care and for further evaluation and management of your ears. Return to the emergency department for any new, concerning or emergent complaints. Scripts Neomycin/Polymyxin B Sulf/Hc (Fcsdypai-Mqiqwgcus-Oh Ear Susp) 3.5 Mg/Ml-10,000 Unit/Ml-1 % Drops.susp 3 DROPS OT QID for 10 Days, #3.5 ML apply 3-4 drops BOTH ears 4 times a day for a total of 10 days Prov: DHRUV VELASQUEZ MD 07/08/23 Verification and Attestation of Medical Student E/M Service A medical student performed and documented this service in my presence. I reviewed and verified all information documented by the medical student and made modifications to such information, when appropriate. I personally performed the physical exam and medical decision making. Dhruv Velasquez, Jul 09, 2023,05:08 (DHRUV VELASQUEZ MD) TYLOR AGUILAR Jul 08, 2023 22:15 DHRUV VELASQUEZ MD Jul 08, 2023 22:38
[2023-07-08] MEDS ORDERED: RX-NEO/POLYB/HC OTIC (CORTISPORIN) SUSP 10 ML BTL ONE (22:20)
[2023-07-08] MEDS ORDERED: NEOM10DR42 OT (22:40)
[2023-07-08 22:46] VITALS: BP 129/83
== END 2023-07-08 22:46 | disposition home or self-care (01) ==
LOC: EDUNIT# 21:24 → ER 21:26
DX: H66.93 Otitis media, unspecified, bilateral (principal)
CPT/HCPCS: 99284